=== PATIENT | female | born 1945 | race Caucasian/White ===

== ENCOUNTER 2020-08-27 09:07 | Inpatient (IN) ==
[2020-08-27] MEDS ORDERED: DEXTROSE 50% 25 GM/50 ML VIAL IV PRN (09:26)
[2020-08-27] MEDS ORDERED: GLUCAGON 1 MG VIAL IM PRN (09:26)
[2020-08-27] MEDS ORDERED: ALBUTEROL 2.5 MG/3 ML NEB RESP TX PRN (09:33)
[2020-08-27 14:50] LABS: Basophils # 0.1 10*3/uL (0.0-0.2); Basophils % 0.6 % (0.0-0.8); Eosinophils # 0.1 10*3/uL (0.0-0.87); Eosinophils % 1.2 % (0.00-10.9); Hematocrit 32.1 VOL% (35.7-47.0); Hemoglobin 9.6 GM/DL (12.0-16.0); Immature Granulocytes % 9.9 %; Immature Granulocytes Absolute 0.92 #; Lymphocytes # 1.5 10*3/uL (1.4-4.0); Lymphocytes % 16.3 % (21.3-54.2); Mean Corpuscular HGB Conc 29.9 GM/DL (32-36); Mean Corpuscular Volume 88.7 FL (87-102); Mean Platelet Volume 9.5 FL (9.6-12.0); Monocytes % 8.6 % (1.7-12.7); NRBC # 0.06 10*3/uL; Neutrophils % 63.4 % (38.7-73.9); Platelet Count 316 T/CUMM (130-400); Red Blood Count 3.62 MC/CUMM (3.8-5.5); Red Cell Distribution Width 18.6 % (9.3-17.3); White Blood Count 9.3 T/CUMM (4-12)
[2020-08-27] MEDS: INSULIN REGULAR 100 UNIT/ML SUBCUT SCH ×3 (14:54→20:15)
[2020-08-27] MEDS: SODIUM CHLORIDE 0.9% 1,000 ML IV SCH (14:54)
[2020-08-27 15:06] LABS: Albumin 2.5 G/DL (3.4-5.0); Bilirubin,Total 0.4 MG/DL (0.20-1.00); Calcium 9.8 MG/DL (8.5-10.1); Osmolality,Calculated 295.3 MOS/KG (273-304)
[2020-08-27 15:17] LABS: Band Neutrophils 6 % (0-10); Eosinophils 2 % (0-10); Hypochromasia 1+; Lymphocytes 13 % (20-55); Metamyelocytes 1 %; Myelocytes 5 %; Polychromasia 1+; Segmented Neutrophils 66 % (50-85); Total Cells Counted 100
[2020-08-27 15:18] LABS: Anisocytosis 2+; Atypical Lymphocytes Few; Macrocytosis 1+; Microcytosis 2+; Platelet Estimate Normal
[2020-08-27 15:55] LABS: ABG Base Excess 1.8 MMOL/L (-2.5-2.5); ABG Oxygen Saturation 96.3 % (95-100); ABG PCO2 41.9 MM HG (35-48); ABG PH 7.411 (7.35-7.45); ABG PO2 85.4 MM HG (80-95); ABG TCO2 24.4 MMOL/L (23-27); Allen Test Positive
[2020-08-27] MEDS: PREGABALIN 100 MG CAPSULE PO SCH ×2 (16:44→20:16)
[2020-08-27] MEDS: AMITRIPTYLINE 50 MG TABLET PO SCH (20:15)
[2020-08-27] MEDS: CHLORHEXIDINE 0.12% ORAL RINSE 60 ML BOTTLE SWISH/SPIT SCH (20:16)
[2020-08-27] MEDS: ATORVASTATIN 40 MG TABLET PO SCH (20:16)
[2020-08-27] MEDS: MELATONIN 3 MG TABLET PO SCH (21:48)
[2020-08-28 04:56] LABS: Basophils # 0.1 10*3/uL (0.0-0.2); Basophils % 0.5 % (0.0-0.8); Eosinophils # 0.2 10*3/uL (0.0-0.87); Eosinophils % 2.3 % (0.00-10.9); Hematocrit 30.5 VOL% (35.7-47.0); Hemoglobin 9.3 GM/DL (12.0-16.0); Immature Granulocytes % 12.8 %; Immature Granulocytes Absolute 1.27 #; Lymphocytes % 20.2 % (21.3-54.2); Mean Corpuscular HGB Conc 30.5 GM/DL (32-36); Mean Corpuscular Volume 88.2 FL (87-102); Mean Platelet Volume 9.4 FL (9.6-12.0); Monocytes % 8.4 % (1.7-12.7); NRBC # 0.07 10*3/uL; Neutrophils % 55.8 % (38.7-73.9); Platelet Count 298 T/CUMM (130-400); Red Blood Count 3.46 MC/CUMM (3.8-5.5); Red Cell Distribution Width 18.6 % (9.3-17.3)
[2020-08-28 05:26] LABS: Albumin 2.3 G/DL (3.4-5.0); Bilirubin,Total 0.5 MG/DL (0.20-1.00); Calcium 9.2 MG/DL (8.5-10.1); Osmolality,Calculated 288.1 MOS/KG (273-304); Potassium 3.7 MMOL/L (3.5-5.1); Total Protein 6.3 G/DL (6.4-8.2)
[2020-08-28 05:50] LABS: Eosinophils 2 % (0-10); Lymphocytes 27 % (20-55); Nucleated Red Blood Cells 1 (0-5); Platelet Estimate Normal; Segmented Neutrophils 62 % (50-85)
[2020-08-28 05:51] LABS: Total Cells Counted 100
[2020-08-28] MEDS: INSULIN REGULAR 100 UNIT/ML SUBCUT SCH ×4 (07:21→21:50)
[2020-08-28] MEDS: POLYETHYLENE GLYCOL POWDER 17 GM PACK PO SCH (08:25)
[2020-08-28] MEDS: CHLORHEXIDINE 0.12% ORAL RINSE 60 ML BOTTLE SWISH/SPIT SCH ×2 (08:37→21:50)
[2020-08-28] MEDS: FOLIC ACID 1 MG TABLET PO SCH (08:37)
[2020-08-28] MEDS: PREGABALIN 100 MG CAPSULE PO SCH ×3 (08:37→22:58)
[2020-08-28] MEDS: PANTOPRAZOLE 40 MG TABLET PO SCH (08:37)
[2020-08-28] MEDS: SODIUM CHLORIDE 0.9% 1,000 ML IV SCH (12:55)
[2020-08-28] MEDS: CHLORHEXIDINE 4% SOLN 118 ML BOTTLE TOP SCH ×2 (15:58→21:50)
[2020-08-28] MEDS: MELATONIN 3 MG TABLET PO SCH (22:58)
[2020-08-28] MEDS: AMITRIPTYLINE 50 MG TABLET PO SCH (22:58)
[2020-08-28] MEDS: ATORVASTATIN 40 MG TABLET PO SCH (22:58)
[2020-08-29] MEDS ORDERED: VANCOMYCIN 1,000 MG VIAL ONE (04:19)
[2020-08-29] MEDS ORDERED: VANCOMYCIN 500 MG VIAL ONE ×2 (04:20→10:10)
[2020-08-29] MEDS ORDERED: PAPAVERINE 60 MG/2 ML VIAL ONE ×2 (04:20→10:07)
[2020-08-29] MEDS ORDERED: VECURONIUM 10 MG VIAL IV ONE ×3 (06:17→08:50)
[2020-08-29] MEDS ORDERED: LIDOCAINE 2% 5 ML VIAL ONE ×2 (06:17→11:31)
[2020-08-29] MEDS ORDERED: LACTATED RINGERS 1,000 ML IV ONE (06:17)
[2020-08-29] MEDS ORDERED: SODIUM CHLORIDE 0.9% 250 ML IV ONE (06:17)
[2020-08-29] MEDS ORDERED: SODIUM CHLORIDE 0.9% 1,000 ML IV ONE (06:17)
[2020-08-29] MEDS ORDERED: ETOMIDATE 40 MG/20 ML VIAL IV ONE (06:17)
[2020-08-29] MEDS ORDERED: HEPARIN/NACL 0.9% 2 UNITS/ML 1,000 UNIT/500 ML BAG IV ONE (06:17)
[2020-08-29] MEDS ORDERED: SODIUM CHLORIDE 0.9% 100 ML IV ONE (06:17)
[2020-08-29] MEDS ORDERED: AMINOCAPROIC ACID 5,000 MG/20 ML VIAL ONE (06:17)
[2020-08-29] MEDS ORDERED: MINERAL OIL/PETROLATUM OPH OINT 3.5 GM TUBE ONE (06:17)
[2020-08-29] MEDS ORDERED: CALCIUM CHLORIDE 1,000 MG/10 ML VIAL IV ONE (06:19)
[2020-08-29] MEDS ORDERED: MIDAZOLAM 10 MG/2 ML VIAL ONE ×4 (06:21→08:51)
[2020-08-29] MEDS ORDERED: SUFentanil 250 MCG/5 ML AMP ONE ×2 (06:22→08:03)
[2020-08-29] MEDS ORDERED: DIAZEPAM 5 MG TABLET PO ONE (06:30)
[2020-08-29] MEDS ORDERED: CEFUROXIME INJ 1,500 MG in SODIUM CHLORIDE 0.9% 100 ML IV ONE (06:30)
[2020-08-29] MEDS ORDERED: POTASSIUM CHLORIDE RIDER 20 MEQ/100 ML PREMIX IV ONE (07:24)
[2020-08-29] MEDS ORDERED: SODIUM BICARBONATE 50 MEQ/50 ML VIAL IV ONE ×2 (07:24→11:33)
[2020-08-29] MEDS ORDERED: NITROPRUSSIDE 50 MG/2 ML VIAL ONE (07:24)
[2020-08-29] MEDS ORDERED: CALCIUM CHLORIDE 1,000 MG/10 ML SYRINGE IV ONE (07:25)
[2020-08-29] MEDS ORDERED: PHENYLEPHRINE DRIP 40 MG/250 ML PREMIX IV ONE (07:25)
[2020-08-29 07:35] LABS: ABG HCO3 24.4 MMOL/L (20-26); ABG Oxygen Saturation 99.4 % (95-100); ABG PCO2 29.9 MM HG (35-48); ABG PH 7.529 (7.35-7.45); ABG PO2 404.8 MM HG (80-95); ABG TCO2 25.3 MMOL/L (23-27); Ionized Calcium Arterial 1.22 MMOL/L (1.21-1.46); Potassium Heart/CVR 4.5 MMOL/L (3.5-5.1)
[2020-08-29 07:36] LABS: Glucose Heart Surgery 224 MG/DL (74-106); Hemoglobin Heart Surgery 9.5 G/DL (12.0-16.0); PCO2 Patient Temp Arterial 29.9 MMHG; PH Patient Temp Arterial 7.529; PO2 Patient Temp Arterial 404.8 MM HG; Patient Temperature 37 CELCIUS; Sodium Heart/CVR 137 MMOL/L (135-145)
[2020-08-29 07:44] LABS: Bilirubin,Urine Negative (Negative); Blood, Urine Negative (Negative); Glucose,Urine (UA) >=500 mg/dL (Negative); Ketones,Urine Negative (Negative); Nitrite,Urine Negative (Negative); Protein,Urine Negative; RBC,Urine 3 /HPF (0-4); Urine Appearance CLEAR (Clear); Urine Color Yellow (Yellow); Urine Urobilinogen < 2.0 EU/DL (0.2-1.0)
[2020-08-29] MEDS ORDERED: diphenhydrAMINE 50 MG/1 ML VIAL ONE (08:50)
[2020-08-29] MEDS ORDERED: SEVOFLURANE 1 UNIT/15 MINUTE INH ONE (08:51)
[2020-08-29 08:59] LABS: Hematocrit Heart Surgery 30.1 PERCENT (37-47); Hemoglobin Heart Surgery 9.7 G/DL (12.0-16.0); PCO2 Patient Temp Venous 42.4 MM HG; PH Patient Temp Venous 7.386; PO2 Patient Temp Venous 41.7 MM HG; VBG Base Excess 0.4 MEQ/L (0-4); VBG HCO3 24.5 MEQ/L (24-28); VBG PCO2 46.7 MMHG (41-51); VBG PH 7.357; VBG PO2 47.8 MMHG (17-40); VBG Total CO2 24.1 MMOL/L
[2020-08-29 09:36] LABS: PCO2 Patient Temp Venous 30.8 MM HG; PH Patient Temp Venous 7.502; PO2 Patient Temp Venous 28.4 MM HG; Potassium Heart/CVR 4.3 MMOL/L (3.5-5.1); VBG Base Excess 1.5 MEQ/L (0-4); VBG HCO3 25.3 MEQ/L (24-28); VBG Oxygen Saturation 68.7 %; VBG PCO2 35.6 MMHG (41-51); VBG PH 7.457; VBG PO2 35.1 MMHG (17-40); VBG Total CO2 23.2 MMOL/L
[2020-08-29] MEDS ORDERED: FAMOTIDINE 20 MG/2 ML VIAL IV ONE (09:38)
[2020-08-29 10:10] LABS: Hematocrit Heart Surgery 28.6 PERCENT (37-47); Hemoglobin Heart Surgery 9.2 G/DL (12.0-16.0); PCO2 Patient Temp Venous 38.5 MM HG; PH Patient Temp Venous 7.427; PO2 Patient Temp Venous 39.1 MM HG; Potassium Heart/CVR 4.6 MMOL/L (3.5-5.1); VBG Base Excess 1.1 MEQ/L (0-4); VBG Oxygen Saturation 72.2 %; VBG PCO2 38.5 MMHG (41-51); VBG PH 7.427; VBG PO2 39.1 MMHG (17-40); VBG Total CO2 23.4 MMOL/L
[2020-08-29 10:36] LABS: Hematocrit Heart Surgery 29.6 PERCENT (37-47); Hemoglobin Heart Surgery 9.5 G/DL (12.0-16.0); PCO2 Patient Temp Venous 38.4 MM HG; PH Patient Temp Venous 7.433; PO2 Patient Temp Venous 38.7 MM HG; Potassium Heart/CVR 4.2 MMOL/L (3.5-5.1); VBG Base Excess 1.4 MEQ/L (0-4); VBG HCO3 25.3 MEQ/L (24-28); VBG Oxygen Saturation 71.9 %; VBG PCO2 38.4 MMHG (41-51); VBG PH 7.433; VBG PO2 38.7 MMHG (17-40); VBG Total CO2 23.5 MMOL/L
[2020-08-29 11:06] LABS: Hematocrit Heart Surgery 27.9 PERCENT (37-47); PCO2 Patient Temp Venous 33.5 MM HG; PH Patient Temp Venous 7.48; PO2 Patient Temp Venous 38.9 MM HG; Potassium Heart/CVR 4.2 MMOL/L (3.5-5.1); VBG Base Excess 1.8 MEQ/L (0-4); VBG HCO3 25.7 MEQ/L (24-28); VBG Oxygen Saturation 80.6 %; VBG PH 7.45; VBG PO2 44.7 MMHG (17-40); VBG Total CO2 23.7 MMOL/L
[2020-08-29] MEDS ORDERED: NEOMYCIN/POLYMYXIN IRRIG SOLN 1 ML AMP BLADDERIRR ONE (11:13)
[2020-08-29] MEDS ORDERED: AMIODARONE 150 MG/3 ML VIAL ONE (11:22)
[2020-08-29] MEDS ORDERED: EPINEPHrine 1 MG/ML VIAL ONE (11:30)
[2020-08-29] MEDS ORDERED: ALBUMIN 25% 25 GM/100 ML VIAL IV ONE (11:31)
[2020-08-29] MEDS ORDERED: MANNITOL 100 GM/500 ML BAG IV ONE (11:32)
[2020-08-29] MEDS ORDERED: PROTAMINE SULFATE 250 MG/25 ML VIAL IV ONE (11:32)
[2020-08-29] MEDS ORDERED: DEXTROSE 5% KCL 20 MEQ 40 MEQ/2,000 ML BAG IV ONE (11:32)
[2020-08-29] MEDS ORDERED: ALBUMIN 5% 12.5 GM/250 ML VIAL IV ONE (11:32)
[2020-08-29] MEDS ORDERED: MAGNESIUM SULFATE 5 GM/10 ML VIAL IV ONE (11:32)
[2020-08-29] MEDS ORDERED: methylPREDNISolone SOD SUC 1,000 MG/8 ML VIAL ONE (11:32)
[2020-08-29] MEDS ORDERED: POTASSIUM CHLORIDE 20 MEQ/10 ML VIAL ONE (11:33)
[2020-08-29] MEDS ORDERED: HEPARIN 10,000 UNIT/10 ML VIAL ONE (11:33)
[2020-08-29] MEDS ORDERED: FUROSEMIDE 20 MG/2 ML VIAL ONE (11:33)
[2020-08-29] MEDS ORDERED: PROTAMINE SULFATE 50 MG/5 ML VIAL IV ONE (11:33)
[2020-08-29 11:40] LABS: ABG Base Excess 0.6 MMOL/L (-2.5-2.5); ABG PCO2 35.3 MM HG (35-48); ABG PH 7.447 (7.35-7.45); ABG TCO2 22.3 MMOL/L (23-27); Glucose Heart Surgery 420 MG/DL (74-106); Hematocrit Heart Surgery 28.5 PERCENT (37-47); Hemoglobin Heart Surgery 9.2 G/DL (12.0-16.0); Ionized Calcium Arterial 1.39 MMOL/L (1.21-1.46); PCO2 Patient Temp Arterial 35.3 MMHG; PH Patient Temp Arterial 7.447; Patient Temperature 37 CELCIUS; Potassium Heart/CVR 4.1 MMOL/L (3.5-5.1); Sodium Heart/CVR 136 MMOL/L (135-145)
[2020-08-29] MEDS ORDERED: MIDAZOLAM 10 MG/2 ML VIAL IV PRN (12:18)
[2020-08-29] MEDS ORDERED: MORPHINE 10 MG/1 ML VIAL IV PRN (12:18)
[2020-08-29] MEDS ORDERED: MAGNESIUM SULF RIDER 4 GM/100 ML PREMIX IV PRN (12:18)
[2020-08-29] MEDS ORDERED: NITROPRUSSIDE 100 MG in DEXTROSE 5% 250 ML IV PRN (12:18)
[2020-08-29] MEDS ORDERED: POTASSIUM CHLORIDE RIDER 10 MEQ/100 ML PREMIX IV PRN (12:18)
[2020-08-29] MEDS ORDERED: MIDAZOLAM 2 MG/2 ML VIAL IV PRN (12:18)
[2020-08-29] MEDS ORDERED: MAGNESIUM SULF RIDER 2 GM/50 ML PREMIX IV PRN (12:18)
[2020-08-29] MEDS ORDERED: ACETAMINOPHEN 650 MG SUPP RECTAL PRN (12:18)
[2020-08-29] MEDS ORDERED: ONDANSETRON 4 MG/2 ML VIAL IV PRN (12:18)
[2020-08-29] MEDS ORDERED: SODIUM CHLORIDE 0.45% 1,000 ML IV SCH ×2 (12:18)
[2020-08-29] MEDS ORDERED: CHLORHEXIDINE 4% SOLN 118 ML BOTTLE TOP PRN (12:18)
[2020-08-29] MEDS ORDERED: DEXTROSE 50% 25 GM/50 ML VIAL IV PRN ×2 (12:18)
[2020-08-29] MEDS ORDERED: INSULIN REGULAR 100 UNIT/ML IV PRN (12:18)
[2020-08-29] MEDS ORDERED: INSULIN REGULAR 100 UNIT/ML IV ONE (12:18)
[2020-08-29] MEDS ORDERED: CALCIUM CHLORIDE 1,000 MG/10 ML SYRINGE IV PRN (12:18)
[2020-08-29] MEDS ORDERED: VECURONIUM 10 MG VIAL IV PRN ×2 (12:18)
[2020-08-29] MEDS ORDERED: PHENYLEPHRINE DRIP 40 MG/250 ML PREMIX IV PRN (12:18)
[2020-08-29] MEDS ORDERED: THROMBIN TOPICAL (RECOMBINANT) 5,000 UNIT VIAL TOP ONE (12:30)
[2020-08-29 12:42] LABS: ABG Base Excess 1.6 MMOL/L (-2.5-2.5); ABG HCO3 25.9 MMOL/L (20-26); ABG PCO2 36.7 MM HG (35-48); ABG TCO2 23.2 MMOL/L (23-27); Glucose Heart Surgery 378 MG/DL (74-106); Hematocrit Heart Surgery 29.5 PERCENT (37-47); Hemoglobin Heart Surgery 9.5 G/DL (12.0-16.0); Potassium Heart/CVR 4.2 MMOL/L (3.5-5.1)
[2020-08-29 12:45] LABS: Basophils # 0.1 10*3/uL (0.0-0.2); Basophils % 0.4 % (0.0-0.8); Eosinophils # 0.1 10*3/uL (0.0-0.87); Eosinophils % 0.4 % (0.00-10.9); Hematocrit 29.5 VOL% (35.7-47.0); Hemoglobin 9.5 GM/DL (12.0-16.0); Immature Granulocytes % 9.6 %; Immature Granulocytes Absolute 2.32 #; Lymphocytes # 1.2 10*3/uL (1.4-4.0); Mean Corpuscular HGB Conc 32.2 GM/DL (32-36); Mean Corpuscular Volume 86.8 FL (87-102); Mean Platelet Volume 9.8 FL (9.6-12.0); Monocytes % 5.1 % (1.7-12.7); NRBC # 0.04 10*3/uL; Neutrophils % 79.5 % (38.7-73.9); Platelet Count 275 T/CUMM (130-400); Red Cell Distribution Width 17.3 % (9.3-17.3)
[2020-08-29 12:49] LABS: White Blood Count 24.2 T/CUMM (4-12)
[2020-08-29 13:03] LABS: High Sensitive Troponin I* 7120.8 ng/L (0-54)
[2020-08-29 13:10] LABS: INR 1.1; PT Patient Result 12.1 SECS (10.5-12.0); Partial Thromboplastin Time 26.1 SECS (23.9-33.8)
[2020-08-29] MEDS: INSULIN REGULAR DRIP 100 ML IV SCH (13:10)
[2020-08-29] MEDS: INSULIN REGULAR 100 UNIT/ML SUBCUT SCH (13:11)
[2020-08-29] MEDS: CHLORHEXIDINE 0.12% ORAL RINSE 60 ML BOTTLE SWISH/SPIT SCH ×2 (13:12→20:07)
[2020-08-29] MEDS: PREGABALIN 100 MG CAPSULE PO SCH (13:12)
[2020-08-29] MEDS: POLYETHYLENE GLYCOL POWDER 17 GM PACK PO SCH (13:12)
[2020-08-29] MEDS: PANTOPRAZOLE 40 MG TABLET PO SCH (13:12)
[2020-08-29] MEDS: CHLORHEXIDINE 4% SOLN 118 ML BOTTLE TOP SCH (13:12)
[2020-08-29] MEDS: SODIUM CHLORIDE 0.9% 1,000 ML IV SCH (13:12)
[2020-08-29] MEDS: FOLIC ACID 1 MG TABLET PO SCH (13:12)
[2020-08-29 13:14] LABS: Albumin 2.7 G/DL (3.4-5.0); Bilirubin,Total 0.9 MG/DL (0.20-1.00); Calcium 8.9 MG/DL (8.5-10.1); Osmolality,Calculated 295.5 MOS/KG (273-304); Potassium 4.3 MMOL/L (3.5-5.1); Total Protein 5.5 G/DL (6.4-8.2)
[2020-08-29] MEDS ORDERED: NITROGLYCERIN DRIP 50 MG/250 ML BOTTLE IV ONE (13:20)
[2020-08-29] MEDS ORDERED: NITROGLYCERIN DRIP 50 MG/250 ML BOTTLE IV PRN (13:21)
[2020-08-29 13:30] LABS: Band Neutrophils 12 % (0-10); Lymphocytes 4 % (20-55); Metamyelocytes 3 %; Myelocytes 3 %; Segmented Neutrophils 73 % (50-85); Total Cells Counted 100
[2020-08-29 13:32] LABS: Anisocytosis Slight; Atypical Lymphocytes Few; Microcytosis Slight; Platelet Estimate Normal; Toxic Granulation 1+
[2020-08-29 14:46] LABS: ABG HCO3 27.1 MMOL/L (20-26); ABG Oxygen Saturation 99.6 % (95-100); ABG PCO2 34.6 MM HG (35-48); ABG PH 7.488 (7.35-7.45); ABG TCO2 23.9 MMOL/L (23-27); Glucose Heart Surgery 310 MG/DL (74-106); Hemoglobin Heart Surgery 9.7 G/DL (12.0-16.0); Potassium Heart/CVR 3.9 MMOL/L (3.5-5.1)
[2020-08-29 16:56] LABS: ABG Base Excess 3.2 MMOL/L (-2.5-2.5); ABG HCO3 27.3 MMOL/L (20-26); ABG Oxygen Saturation 99.7 % (95-100); ABG PH 7.506 (7.35-7.45); ABG TCO2 23.7 MMOL/L (23-27); Glucose Heart Surgery 255 MG/DL (74-106); Hemoglobin Heart Surgery 9.7 G/DL (12.0-16.0)
[2020-08-29 16:59] LABS: Hematocrit Heart Surgery 30.3 PERCENT (37-47); Hemoglobin Heart Surgery 9.8 G/DL (12.0-16.0); PH Patient Temp Venous 7.503; Potassium Heart/CVR 4.1 MMOL/L (3.5-5.1); VBG Base Excess 3.7 MEQ/L (0-4); VBG HCO3 27.5 MEQ/L (24-28); VBG Oxygen Saturation 86.6 %; VBG PH 7.503; VBG Total CO2 24.3 MMOL/L
[2020-08-29] MEDS ORDERED: FUROSEMIDE 40 MG/4 ML VIAL IV ONE (18:19)
[2020-08-29] MEDS ORDERED: FUROSEMIDE 40 MG/4 ML VIAL IV PRN (18:19)
[2020-08-29 19:25] LABS: ABG Base Excess 2.5 MMOL/L (-2.5-2.5); ABG HCO3 26.3 MMOL/L (20-26); ABG Oxygen Saturation 98.2 % (95-100); ABG PCO2 37.8 MM HG (35-48); ABG PH 7.461 (7.35-7.45); ABG PO2 129.7 MM HG (80-95); ABG TCO2 27.5 MMOL/L (23-27); Glucose Heart Surgery 193 MG/DL (74-106); Hemoglobin Heart Surgery 10.2 G/DL (12.0-16.0); Potassium Heart/CVR 3.3 MMOL/L (3.5-5.1)
[2020-08-29] MEDS: CEFUROXIME INJ 1,500 MG in SODIUM CHLORIDE 0.9% 100 ML IV SCH (19:26)
[2020-08-29] MEDS: ALBUMIN 5% 12.5 GM/250 ML VIAL IV PRN ×2 (19:35→22:11)
[2020-08-29] MEDS: LACTATED RINGERS 250 ML IV PRN ×4 (20:07→21:51)
[2020-08-29] MEDS: POTASSIUM CHLORIDE RIDER 20 MEQ/100 ML PREMIX IV PRN ×2 (20:12→20:37)
[2020-08-29 20:34] LABS: CKMB % 3.2 %
[2020-08-29 20:36] LABS: High Sensitive Troponin I* 4942.8 ng/L (0-54)
[2020-08-30 00:06] LABS: ABG Base Excess 3.1 MMOL/L (-2.5-2.5); ABG HCO3 27.2 MMOL/L (20-26); ABG Oxygen Saturation 98.6 % (95-100); ABG PH 7.468 (7.35-7.45); ABG TCO2 24.8 MMOL/L (23-27); Glucose Heart Surgery 120 MG/DL (74-106); Hematocrit Heart Surgery 26.6 PERCENT (37-47); Hemoglobin Heart Surgery 8.6 G/DL (12.0-16.0); Potassium Heart/CVR 3.8 MMOL/L (3.5-5.1)
[2020-08-30] MEDS: POTASSIUM CHLORIDE RIDER 20 MEQ/100 ML PREMIX IV PRN ×2 (00:33→03:09)
[2020-08-30] MEDS: INSULIN REGULAR DRIP 100 ML IV SCH (01:14)
[2020-08-30 02:45] LABS: ABG HCO3 27.1 MMOL/L (20-26); ABG Oxygen Saturation 97.2 % (95-100); ABG PCO2 44.5 MM HG (35-48); ABG PH 7.402 (7.35-7.45); ABG PO2 105.8 MM HG (80-95); ABG TCO2 28.4 MMOL/L (23-27); Glucose Heart Surgery 108 MG/DL (74-106); Potassium Heart/CVR 4.3 MMOL/L (3.5-5.1)
[2020-08-30] MEDS ORDERED: NITROPRUSSIDE 50 MG/2 ML VIAL ONE (03:14)
[2020-08-30 04:12] LABS: ABG Base Excess 1.3 MMOL/L (-2.5-2.5); ABG HCO3 25.6 MMOL/L (20-26); ABG PCO2 44.5 MM HG (35-48); ABG PH 7.384 (7.35-7.45); ABG PO2 87.1 MM HG (80-95); ABG TCO2 24.7 MMOL/L (23-27); Glucose Heart Surgery 130 MG/DL (74-106); Hematocrit Heart Surgery 26.6 PERCENT (37-47); Hemoglobin Heart Surgery 8.6 G/DL (12.0-16.0); Potassium Heart/CVR 4.6 MMOL/L (3.5-5.1)
[2020-08-30 04:26] LABS: Basophils % 0.2 % (0.0-0.8); Hematocrit 26.4 VOL% (35.7-47.0); Hemoglobin 8.3 GM/DL (12.0-16.0); Immature Granulocytes % 7.4 %; Immature Granulocytes Absolute 1.31 #; Lymphocytes # 1.5 10*3/uL (1.4-4.0); Lymphocytes % 8.2 % (21.3-54.2); Mean Corpuscular HGB Conc 31.4 GM/DL (32-36); Mean Corpuscular Volume 87.1 FL (87-102); Mean Platelet Volume 10.6 FL (9.6-12.0); Monocytes % 4.4 % (1.7-12.7); NRBC # 0.03 10*3/uL; Neutrophils % 79.8 % (38.7-73.9); Platelet Count 251 T/CUMM (130-400); Red Blood Count 3.03 MC/CUMM (3.8-5.5); Red Cell Distribution Width 17.5 % (9.3-17.3); White Blood Count 17.8 T/CUMM (4-12)
[2020-08-30 04:43] LABS: Albumin 3.1 G/DL (3.4-5.0); Bilirubin,Direct 0.18 MG/DL (0.0-0.20); Bilirubin,Total 0.5 MG/DL (0.20-1.00); Calcium 8.7 MG/DL (8.5-10.1); Potassium 4.6 MMOL/L (3.5-5.1); Total Protein 6.1 G/DL (6.4-8.2)
[2020-08-30 04:47] LABS: Lymphocytes 6 % (20-55); Platelet Estimate Adequate; Segmented Neutrophils 90 % (50-85); Total Cells Counted 100
[2020-08-30 04:48] LABS: Hypochromasia 1+; Microcytosis 1+
[2020-08-30 05:29] LABS: CKMB % 3.7 %
[2020-08-30 05:31] LABS: High Sensitive Troponin I* 3903.9 ng/L (0-54)
[2020-08-30 07:23] LABS: ABG Base Excess 1.1 MMOL/L (-2.5-2.5); ABG HCO3 25.4 MMOL/L (20-26); ABG Oxygen Saturation 97.8 % (95-100); ABG PCO2 45.1 MM HG (35-48); ABG PH 7.378 (7.35-7.45); ABG TCO2 24.4 MMOL/L (23-27); Glucose Heart Surgery 126 MG/DL (74-106); Hematocrit Heart Surgery 29.6 PERCENT (37-47); Hemoglobin Heart Surgery 9.5 G/DL (12.0-16.0); Potassium Heart/CVR 4.4 MMOL/L (3.5-5.1)
[2020-08-30] MEDS: CEFUROXIME INJ 1,500 MG in SODIUM CHLORIDE 0.9% 100 ML IV SCH ×2 (07:57→20:08)
[2020-08-30] MEDS: CHLORHEXIDINE 0.12% ORAL RINSE 60 ML BOTTLE SWISH/SPIT SCH ×2 (08:00→20:16)
[2020-08-30] MEDS: FOLIC ACID 1 MG TABLET PO SCH (08:00)
[2020-08-30] MEDS: ASPIRIN EC 325 MG TABLET PO SCH (08:00)
[2020-08-30] MEDS ORDERED: FUROSEMIDE 40 MG/4 ML VIAL IV ONE (09:31)
[2020-08-30] MEDS ORDERED: ONDANSETRON 4 MG/2 ML VIAL IV PRN (10:10)
[2020-08-30] MEDS ORDERED: MAGNESIUM SULF RIDER 4 GM/100 ML PREMIX IV PRN (10:10)
[2020-08-30] MEDS ORDERED: DEXTROSE 50% 25 GM/50 ML VIAL IV PRN (10:10)
[2020-08-30] MEDS ORDERED: MAGNESIUM SULF RIDER 2 GM/50 ML PREMIX IV PRN (10:10)
[2020-08-30] MEDS ORDERED: GLUCAGON 1 MG VIAL IM PRN ×2 (10:10)
[2020-08-30] MEDS ORDERED: POTASSIUM CHLORIDE 20 MEQ TABLET PO PRN (10:10)
[2020-08-30] MEDS ORDERED: MAGNESIUM HYDROXIDE SUSP 30 ML UDCUP PO PRN (10:10)
[2020-08-30] MEDS ORDERED: SODIUM CHLOR 0.45% KCL 20 MEQ 20 MEQ/1,000 ML BAG IV SCH (10:10)
[2020-08-30] MEDS ORDERED: ALUMINUM/MAGNES/SIMETH MAX STR 30 ML UDCUP PO PRN (10:10)
[2020-08-30] MEDS ORDERED: ACETAMINOPHEN 325 MG TABLET PO PRN (10:10)
[2020-08-30] MEDS: METOPROLOL TARTRATE 25 MG TABLET PO SCH ×2 (10:41→20:07)
[2020-08-30] MEDS: INSULIN REGULAR 100 UNIT/ML SUBCUT SCH ×5 (12:16→23:44)
[2020-08-30 13:19] LABS: CKMB % 3.9 %
[2020-08-30 13:22] LABS: High Sensitive Troponin I* 4311.1 ng/L (0-54)
[2020-08-30] MEDS ORDERED: INSULIN REGULAR 100 UNIT/ML SUBCUT SCH (16:00)
[2020-08-30] MEDS ORDERED: INSULIN GLARGINE 100 UNIT/ML SUBCUT ONE (16:11)
[2020-08-30] MEDS: ZALEPLON 5 MG CAPSULE PO PRN (20:07)
[2020-08-30] MEDS: SIMVASTATIN 80 MG TABLET PO SCH (20:07)
[2020-08-30] MEDS: AMITRIPTYLINE 50 MG TABLET PO SCH (20:07)
[2020-08-30] MEDS: oxyCODONE/ACETAMINOPHEN 5-325 MG TABLET PO PRN ×2 (20:08→23:45)
[2020-08-31 04:39] LABS: Basophils % 0.2 % (0.0-0.8); Hematocrit 30.8 VOL% (35.7-47.0); Hemoglobin 9.6 GM/DL (12.0-16.0); Immature Granulocytes % 4.5 %; Immature Granulocytes Absolute 0.78 #; Lymphocytes # 1.8 10*3/uL (1.4-4.0); Lymphocytes % 10.3 % (21.3-54.2); Mean Corpuscular HGB Conc 31.2 GM/DL (32-36); Mean Corpuscular Volume 89.3 FL (87-102); Mean Platelet Volume 10.4 FL (9.6-12.0); Monocytes % 8.3 % (1.7-12.7); NRBC # 0.05 10*3/uL; Neutrophils % 76.7 % (38.7-73.9); Platelet Count 284 T/CUMM (130-400); Red Blood Count 3.45 MC/CUMM (3.8-5.5); Red Cell Distribution Width 17.5 % (9.3-17.3); White Blood Count 17.2 T/CUMM (4-12)
[2020-08-31 04:58] LABS: Band Neutrophils 3 % (0-10); Lymphocytes 5 % (20-55); Segmented Neutrophils 80 % (50-85); Total Cells Counted 100
[2020-08-31 04:59] LABS: Hypochromasia 1+; Microcytosis 1+; Platelet Estimate Normal
[2020-08-31 05:00] LABS: Albumin 2.9 G/DL (3.4-5.0); Bilirubin,Direct 0.13 MG/DL (0.0-0.20); Bilirubin,Total 0.4 MG/DL (0.20-1.00); Calcium 8.7 MG/DL (8.5-10.1); Osmolality,Calculated 292.1 MOS/KG (273-304); Potassium 4.2 MMOL/L (3.5-5.1); Total Protein 6.5 G/DL (6.4-8.2)
[2020-08-31 05:01] LABS: Albumin 2.9 G/DL (3.4-5.0); Bilirubin,Direct 0.19 MG/DL (0.0-0.20); Bilirubin,Indirect 0.2 MG/DL (0.0-1.0); Bilirubin,Total 0.4 MG/DL (0.20-1.00); CKMB % 2.3 %
[2020-08-31 05:03] LABS: High Sensitive Troponin I* 3117.5 ng/L (0-54)
[2020-08-31] MEDS: INSULIN REGULAR 100 UNIT/ML SUBCUT SCH ×5 (05:04→21:13)
[2020-08-31] MEDS ORDERED: FUROSEMIDE 40 MG/4 ML VIAL IV ONE (06:00)
[2020-08-31] MEDS: FOLIC ACID 1 MG TABLET PO SCH (08:56)
[2020-08-31] MEDS: hydroCHLOROthiazide 25 MG TABLET PO SCH (08:56)
[2020-08-31] MEDS: DOCUSATE SODIUM 100 MG CAPSULE PO SCH (08:56)
[2020-08-31] MEDS: PANTOPRAZOLE 40 MG TABLET PO SCH (08:56)
[2020-08-31] MEDS: ASPIRIN EC 325 MG TABLET PO SCH (08:57)
[2020-08-31] MEDS: METOPROLOL TARTRATE 25 MG TABLET PO SCH ×2 (08:57→21:12)
[2020-08-31] MEDS: FERROUS SULFATE 325 MG TABLET PO SCH (08:57)
[2020-08-31] MEDS: CHLORHEXIDINE 0.12% ORAL RINSE 60 ML BOTTLE SWISH/SPIT SCH ×2 (08:57→21:13)
[2020-08-31] MEDS: oxyCODONE/ACETAMINOPHEN 5-325 MG TABLET PO PRN (21:12)
[2020-08-31] MEDS: SIMVASTATIN 80 MG TABLET PO SCH (21:12)
[2020-08-31] MEDS: AMITRIPTYLINE 50 MG TABLET PO SCH (21:12)
[2020-08-31] MEDS: ZALEPLON 5 MG CAPSULE PO PRN (21:34)
[2020-09-01] MEDS: DEXTROSE 50% 25 GM/50 ML VIAL IV PRN ×2 (00:30→01:00)
[2020-09-01] MEDS: oxyCODONE/ACETAMINOPHEN 5-325 MG TABLET PO PRN ×3 (01:00→22:13)
[2020-09-01 05:14] LABS: Basophils # 0.1 10*3/uL (0.0-0.2); Basophils % 0.4 % (0.0-0.8); Eosinophils # 0.1 10*3/uL (0.0-0.87); Eosinophils % 0.5 % (0.00-10.9); Hematocrit 31.4 VOL% (35.7-47.0); Hemoglobin 9.6 GM/DL (12.0-16.0); Immature Granulocytes % 4.1 %; Immature Granulocytes Absolute 0.54 #; Lymphocytes # 2.4 10*3/uL (1.4-4.0); Lymphocytes % 18.2 % (21.3-54.2); Mean Corpuscular HGB Conc 30.6 GM/DL (32-36); Mean Corpuscular Volume 91.8 FL (87-102); Mean Platelet Volume 10.9 FL (9.6-12.0); NRBC # 0.04 10*3/uL; Neutrophils % 69.8 % (38.7-73.9); Platelet Count 300 T/CUMM (130-400); Red Blood Count 3.42 MC/CUMM (3.8-5.5); Red Cell Distribution Width 17.5 % (9.3-17.3); White Blood Count 13.3 T/CUMM (4-12)
[2020-09-01 05:32] LABS: Band Neutrophils 1 % (0-10); Eosinophils 1 % (0-10); Hypochromasia 1+; Lymphocytes 18 % (20-55); Microcytosis 1+; Platelet Estimate Adequate; Segmented Neutrophils 71 % (50-85); Total Cells Counted 100
[2020-09-01 05:49] LABS: Alanine Aminotransferase 49 U/L (13-56); Albumin 2.6 G/DL (3.4-5.0); Albumin 2.7 G/DL (3.4-5.0); Aspartate Amino Transferase 27 U/L (0-37); Bilirubin,Direct 0.15 MG/DL (0.0-0.20); Bilirubin,Indirect 0.2 MG/DL (0.0-1.0); Bilirubin,Total 0.4 MG/DL (0.20-1.00); Osmolality,Calculated 297.7 MOS/KG (273-304); Potassium 4.2 MMOL/L (3.5-5.1); Total Protein 6.3 G/DL (6.4-8.2)
[2020-09-01 05:50] LABS: Alkaline Phosphatase 56 U/L (45-117)
[2020-09-01] MEDS: INSULIN REGULAR 100 UNIT/ML SUBCUT SCH ×6 (06:34→22:32)
[2020-09-01] MEDS ORDERED: metFORMIN 500 MG TABLET PO SCH (08:00)
[2020-09-01] MEDS: ASPIRIN EC 325 MG TABLET PO SCH (09:38)
[2020-09-01] MEDS: FOLIC ACID 1 MG TABLET PO SCH (09:38)
[2020-09-01] MEDS: DOCUSATE SODIUM 100 MG CAPSULE PO SCH (09:39)
[2020-09-01] MEDS: METOPROLOL TARTRATE 25 MG TABLET PO SCH ×2 (09:39→22:13)
[2020-09-01] MEDS: hydroCHLOROthiazide 25 MG TABLET PO SCH (09:40)
[2020-09-01] MEDS: PANTOPRAZOLE 40 MG TABLET PO SCH (09:40)
[2020-09-01] MEDS: FERROUS SULFATE 325 MG TABLET PO SCH (09:40)
[2020-09-01] MEDS: CHLORHEXIDINE 0.12% ORAL RINSE 60 ML BOTTLE SWISH/SPIT SCH ×2 (09:40→22:32)
[2020-09-01] MEDS ORDERED: LACTULOSE 20 GM/30 ML UDCUP PO PRN (10:19)
[2020-09-01] MEDS: AMITRIPTYLINE 50 MG TABLET PO SCH (22:12)
[2020-09-01] MEDS: SIMVASTATIN 80 MG TABLET PO SCH (22:13)
[2020-09-02 04:35] LABS: Basophils # 0.1 10*3/uL (0.0-0.2); Basophils % 0.5 % (0.0-0.8); Eosinophils # 0.1 10*3/uL (0.0-0.87); Eosinophils % 1.3 % (0.00-10.9); Hematocrit 35.1 VOL% (35.7-47.0); Hemoglobin 10.9 GM/DL (12.0-16.0); Immature Granulocytes % 4.2 %; Lymphocytes # 2.2 10*3/uL (1.4-4.0); Lymphocytes % 22.5 % (21.3-54.2); Mean Corpuscular HGB Conc 31.1 GM/DL (32-36); Mean Corpuscular Volume 89.1 FL (87-102); Mean Platelet Volume 10.4 FL (9.6-12.0); Monocytes % 6.4 % (1.7-12.7); NRBC # 0.03 10*3/uL; Neutrophils % 65.1 % (38.7-73.9); Platelet Count 282 T/CUMM (130-400); Red Blood Count 3.94 MC/CUMM (3.8-5.5); Red Cell Distribution Width 16.9 % (9.3-17.3); White Blood Count 9.6 T/CUMM (4-12)
[2020-09-02 05:00] LABS: Calcium 9.1 MG/DL (8.5-10.1); Osmolality,Calculated 292.3 MOS/KG (273-304); Potassium 3.6 MMOL/L (3.5-5.1)
[2020-09-02] MEDS ORDERED: metFORMIN 500 MG TABLET PO SCH (08:00)
[2020-09-02] MEDS: METOPROLOL TARTRATE 25 MG TABLET PO SCH ×2 (10:00→21:06)
[2020-09-02] MEDS: ASPIRIN EC 325 MG TABLET PO SCH (10:00)
[2020-09-02] MEDS: DOCUSATE SODIUM 100 MG CAPSULE PO SCH (10:00)
[2020-09-02] MEDS: ASCORBIC ACID 500 MG TABLET PO SCH ×2 (10:00→21:07)
[2020-09-02] MEDS: PANTOPRAZOLE 40 MG TABLET PO SCH (10:00)
[2020-09-02] MEDS: FOLIC ACID 1 MG TABLET PO SCH (10:01)
[2020-09-02] MEDS: INSULIN REGULAR 100 UNIT/ML SUBCUT SCH ×4 (10:01→21:08)
[2020-09-02] MEDS: FERROUS SULFATE 325 MG TABLET PO SCH (10:01)
[2020-09-02] MEDS: CHLORHEXIDINE 0.12% ORAL RINSE 60 ML BOTTLE SWISH/SPIT SCH ×2 (10:02→21:10)
[2020-09-02] MEDS: hydroCHLOROthiazide 25 MG TABLET PO SCH (10:12)
[2020-09-02] MEDS: metFORMIN 500 MG TABLET PO SCH (10:12)
[2020-09-02] MEDS: POLYETHYLENE GLYCOL POWDER 17 GM PACK PO SCH (12:51)
[2020-09-02] MEDS: SIMVASTATIN 80 MG TABLET PO SCH (21:07)
[2020-09-02] MEDS: AMITRIPTYLINE 50 MG TABLET PO SCH (21:07)
[2020-09-02] MEDS: oxyCODONE/ACETAMINOPHEN 5-325 MG TABLET PO PRN (22:46)
[2020-09-03 05:41] LABS: Basophils # 0.1 10*3/uL (0.0-0.2); Basophils % 0.4 % (0.0-0.8); Eosinophils # 0.2 10*3/uL (0.0-0.87); Eosinophils % 1.2 % (0.00-10.9); Hematocrit 32.5 VOL% (35.7-47.0); Hemoglobin 9.9 GM/DL (12.0-16.0); Immature Granulocytes % 4.7 %; Immature Granulocytes Absolute 0.59 #; Lymphocytes % 16.1 % (21.3-54.2); Mean Corpuscular HGB Conc 30.5 GM/DL (32-36); Mean Corpuscular Volume 90.3 FL (87-102); Mean Platelet Volume 10.2 FL (9.6-12.0); Monocytes % 6.7 % (1.7-12.7); NRBC # 0.02 10*3/uL; Neutrophils % 70.9 % (38.7-73.9); Platelet Count 351 T/CUMM (130-400); Red Cell Distribution Width 17.1 % (9.3-17.3); White Blood Count 12.4 T/CUMM (4-12)
[2020-09-03 06:17] LABS: Alanine Aminotransferase 46 U/L (13-56); Albumin 2.6 G/DL (3.4-5.0); Alkaline Phosphatase 55 U/L (45-117); Aspartate Amino Transferase 22 U/L (0-37); Bilirubin,Indirect 0.3 MG/DL (0.0-1.0); Blood Urea Nitrogen 32 MG/DL (7-18); Calcium 9.1 MG/DL (8.5-10.1); Carbon Dioxide 32 MMOL/L (21-32); Estimated Glom Filtration Rate 85 ML/MIN; Glucose 193 MG/DL (74-106); Osmolality,Calculated 290.4 MOS/KG (273-304); Potassium 3.7 MMOL/L (3.5-5.1); Sodium 140 MMOL/L (136-145); Total Protein 6.4 G/DL (6.4-8.2)
[2020-09-03 06:52] LABS: Lymphocytes 9 % (20-55); Segmented Neutrophils 86 % (50-85); Total Cells Counted 100
[2020-09-03 06:53] LABS: Hypochromasia 1+
[2020-09-03 06:54] LABS: Platelet Estimate Normal; Polychromasia Slight
[2020-09-03] MEDS: INSULIN REGULAR 100 UNIT/ML SUBCUT SCH ×4 (09:38→21:22)
[2020-09-03] MEDS: METOPROLOL TARTRATE 25 MG TABLET PO SCH ×2 (09:39→21:22)
[2020-09-03] MEDS: ASCORBIC ACID 500 MG TABLET PO SCH ×2 (09:39→21:21)
[2020-09-03] MEDS: PANTOPRAZOLE 40 MG TABLET PO SCH (09:39)
[2020-09-03] MEDS: hydroCHLOROthiazide 25 MG TABLET PO SCH (09:39)
[2020-09-03] MEDS: FERROUS SULFATE 325 MG TABLET PO SCH (09:39)
[2020-09-03] MEDS: metFORMIN 500 MG TABLET PO SCH (09:39)
[2020-09-03] MEDS: DOCUSATE SODIUM 100 MG CAPSULE PO SCH (09:40)
[2020-09-03] MEDS: CHLORHEXIDINE 0.12% ORAL RINSE 60 ML BOTTLE SWISH/SPIT SCH ×2 (09:40→21:22)
[2020-09-03] MEDS: ASPIRIN EC 325 MG TABLET PO SCH (09:40)
[2020-09-03] MEDS: FOLIC ACID 1 MG TABLET PO SCH (09:40)
[2020-09-03] MEDS: POLYETHYLENE GLYCOL POWDER 17 GM PACK PO SCH (11:36)
[2020-09-03] MEDS: oxyCODONE/ACETAMINOPHEN 5-325 MG TABLET PO PRN ×2 (14:37→21:22)
[2020-09-03] MEDS: AMITRIPTYLINE 50 MG TABLET PO SCH (18:59)
[2020-09-03] MEDS: SIMVASTATIN 80 MG TABLET PO SCH (18:59)
[2020-09-04 06:21] LABS: Basophils # 0.1 10*3/uL (0.0-0.2); Basophils % 0.5 % (0.0-0.8); Eosinophils # 0.2 10*3/uL (0.0-0.87); Eosinophils % 1.4 % (0.00-10.9); Hematocrit 30.8 VOL% (35.7-47.0); Hemoglobin 9.8 GM/DL (12.0-16.0); Immature Granulocytes % 2.4 %; Immature Granulocytes Absolute 0.27 #; Lymphocytes # 1.9 10*3/uL (1.4-4.0); Lymphocytes % 17.1 % (21.3-54.2); Mean Corpuscular HGB Conc 31.8 GM/DL (32-36); Mean Corpuscular Volume 88.3 FL (87-102); Mean Platelet Volume 10.3 FL (9.6-12.0); Monocytes % 7.1 % (1.7-12.7); Neutrophils % 71.5 % (38.7-73.9); Platelet Count 381 T/CUMM (130-400); Red Blood Count 3.49 MC/CUMM (3.8-5.5)
[2020-09-04 07:03] LABS: Alanine Aminotransferase 43 U/L (13-56); Albumin 2.5 G/DL (3.4-5.0); Alkaline Phosphatase 55 U/L (45-117); Aspartate Amino Transferase 17 U/L (0-37); Bilirubin,Indirect 0.3 MG/DL (0.0-1.0); Blood Urea Nitrogen 29 MG/DL (7-18); Carbon Dioxide 28 MMOL/L (21-32); Estimated Glom Filtration Rate 85 ML/MIN; Glucose 193 MG/DL (74-106); Osmolality,Calculated 293.1 MOS/KG (273-304); Potassium 3.7 MMOL/L (3.5-5.1); Sodium 142 MMOL/L (136-145); Total Protein 6.4 G/DL (6.4-8.2)
[2020-09-04] MEDS: oxyCODONE/ACETAMINOPHEN 5-325 MG TABLET PO PRN ×2 (07:32→21:08)
[2020-09-04] MEDS: ASCORBIC ACID 500 MG TABLET PO SCH ×2 (09:37→21:08)
[2020-09-04] MEDS: metFORMIN 500 MG TABLET PO SCH ×3 (09:38→21:08)
[2020-09-04] MEDS: PANTOPRAZOLE 40 MG TABLET PO SCH (09:38)
[2020-09-04] MEDS: FOLIC ACID 1 MG TABLET PO SCH (09:38)
[2020-09-04] MEDS: hydroCHLOROthiazide 25 MG TABLET PO SCH (09:38)
[2020-09-04] MEDS: FERROUS SULFATE 325 MG TABLET PO SCH (09:39)
[2020-09-04] MEDS: DOCUSATE SODIUM 100 MG CAPSULE PO SCH (09:39)
[2020-09-04] MEDS: METOPROLOL TARTRATE 25 MG TABLET PO SCH ×2 (09:39→21:08)
[2020-09-04] MEDS: ASPIRIN EC 325 MG TABLET PO SCH (09:39)
[2020-09-04] MEDS: INSULIN REGULAR 100 UNIT/ML SUBCUT SCH ×4 (09:40→21:08)
[2020-09-04] MEDS: CHLORHEXIDINE 0.12% ORAL RINSE 60 ML BOTTLE SWISH/SPIT SCH ×2 (10:49→21:09)
[2020-09-04] MEDS: POLYETHYLENE GLYCOL POWDER 17 GM PACK PO SCH (10:49)
[2020-09-04] MEDS: SIMVASTATIN 80 MG TABLET PO SCH (18:10)
[2020-09-04] MEDS: AMITRIPTYLINE 50 MG TABLET PO SCH (18:10)
[2020-09-05 05:56] LABS: Calcium 9.1 MG/DL (8.5-10.1); Osmolality,Calculated 287.3 MOS/KG (273-304); Potassium 3.4 MMOL/L (3.5-5.1)
[2020-09-05] MEDS ORDERED: POTASSIUM CHLORIDE 20 MEQ TABLET PO ONE (09:00)
[2020-09-05] MEDS: POLYETHYLENE GLYCOL POWDER 17 GM PACK PO SCH (09:10)
[2020-09-05] MEDS: INSULIN GLARGINE 100 UNIT/ML SUBCUT SCH (09:12)
[2020-09-05] MEDS: hydroCHLOROthiazide 25 MG TABLET PO SCH (09:12)
[2020-09-05] MEDS: INSULIN REGULAR 100 UNIT/ML SUBCUT SCH ×4 (09:12→20:54)
[2020-09-05] MEDS: ASCORBIC ACID 500 MG TABLET PO SCH ×2 (09:13→20:54)
[2020-09-05] MEDS: FOLIC ACID 1 MG TABLET PO SCH (09:13)
[2020-09-05] MEDS: CHLORHEXIDINE 0.12% ORAL RINSE 60 ML BOTTLE SWISH/SPIT SCH ×2 (09:13→20:56)
[2020-09-05] MEDS: ASPIRIN EC 325 MG TABLET PO SCH (09:13)
[2020-09-05] MEDS: PANTOPRAZOLE 40 MG TABLET PO SCH (09:14)
[2020-09-05] MEDS: FERROUS SULFATE 325 MG TABLET PO SCH (09:14)
[2020-09-05] MEDS: DOCUSATE SODIUM 100 MG CAPSULE PO SCH (09:14)
[2020-09-05] MEDS: metFORMIN 500 MG TABLET PO SCH ×2 (09:14→20:53)
[2020-09-05] MEDS: METOPROLOL TARTRATE 25 MG TABLET PO SCH ×2 (09:14→20:53)
[2020-09-05] MEDS: SIMVASTATIN 80 MG TABLET PO SCH (20:54)
[2020-09-05] MEDS: AMITRIPTYLINE 50 MG TABLET PO SCH (20:54)
[2020-09-05] MEDS: ZALEPLON 5 MG CAPSULE PO PRN (22:36)
[2020-09-06 04:37] LABS: Basophils % 0.4 % (0.0-0.8); Eosinophils # 0.1 10*3/uL (0.0-0.87); Eosinophils % 1.4 % (0.00-10.9); Hematocrit 29.8 VOL% (35.7-47.0); Immature Granulocytes Absolute 0.18 #; Lymphocytes # 2.2 10*3/uL (1.4-4.0); Lymphocytes % 23.8 % (21.3-54.2); Mean Corpuscular HGB Conc 30.2 GM/DL (32-36); Mean Platelet Volume 10.5 FL (9.6-12.0); Monocytes % 8.9 % (1.7-12.7); Neutrophils % 63.5 % (38.7-73.9); Platelet Count 417 T/CUMM (130-400); Red Blood Count 3.31 MC/CUMM (3.8-5.5); White Blood Count 9.2 T/CUMM (4-12)
[2020-09-06 05:10] LABS: Calcium 9.2 MG/DL (8.5-10.1); Osmolality,Calculated 284.7 MOS/KG (273-304); Potassium 3.8 MMOL/L (3.5-5.1)
[2020-09-06] MEDS: FOLIC ACID 1 MG TABLET PO SCH (09:28)
[2020-09-06] MEDS: metFORMIN 500 MG TABLET PO SCH ×2 (09:28→21:44)
[2020-09-06] MEDS: ASPIRIN EC 325 MG TABLET PO SCH (09:28)
[2020-09-06] MEDS: ASCORBIC ACID 500 MG TABLET PO SCH ×2 (09:28→21:44)
[2020-09-06] MEDS: DOCUSATE SODIUM 100 MG CAPSULE PO SCH (09:28)
[2020-09-06] MEDS: METOPROLOL TARTRATE 25 MG TABLET PO SCH (09:29)
[2020-09-06] MEDS: PANTOPRAZOLE 40 MG TABLET PO SCH (09:29)
[2020-09-06] MEDS: hydroCHLOROthiazide 25 MG TABLET PO SCH (09:29)
[2020-09-06] MEDS: INSULIN REGULAR 100 UNIT/ML SUBCUT SCH ×4 (09:30→21:45)
[2020-09-06] MEDS: INSULIN GLARGINE 100 UNIT/ML SUBCUT SCH (09:30)
[2020-09-06] MEDS: POLYETHYLENE GLYCOL POWDER 17 GM PACK PO SCH (09:30)
[2020-09-06] MEDS: FERROUS SULFATE 325 MG TABLET PO SCH (09:30)
[2020-09-06] MEDS: CHLORHEXIDINE 0.12% ORAL RINSE 60 ML BOTTLE SWISH/SPIT SCH ×2 (09:31→21:45)
[2020-09-06] MEDS: SIMVASTATIN 80 MG TABLET PO SCH (21:44)
[2020-09-06] MEDS: AMITRIPTYLINE 50 MG TABLET PO SCH (21:44)
[2020-09-06] MEDS: ZALEPLON 5 MG CAPSULE PO PRN (21:44)
[2020-09-07 06:38] LABS: Calcium 9.1 MG/DL (8.5-10.1); Osmolality,Calculated 285.5 MOS/KG (273-304); Potassium 3.7 MMOL/L (3.5-5.1)
[2020-09-07] MEDS: METOPROLOL TARTRATE 25 MG TABLET PO SCH (09:09)
[2020-09-07] MEDS: ASPIRIN EC 325 MG TABLET PO SCH (09:09)
[2020-09-07] MEDS: hydroCHLOROthiazide 25 MG TABLET PO SCH (09:09)
[2020-09-07] MEDS: PANTOPRAZOLE 40 MG TABLET PO SCH (09:09)
[2020-09-07] MEDS: ASCORBIC ACID 500 MG TABLET PO SCH (09:09)
[2020-09-07] MEDS: DOCUSATE SODIUM 100 MG CAPSULE PO SCH (09:09)
[2020-09-07] MEDS: FERROUS SULFATE 325 MG TABLET PO SCH (09:10)
[2020-09-07] MEDS: FOLIC ACID 1 MG TABLET PO SCH (09:10)
[2020-09-07] MEDS: INSULIN REGULAR 100 UNIT/ML SUBCUT SCH (09:10)
[2020-09-07] MEDS: INSULIN GLARGINE 100 UNIT/ML SUBCUT SCH (09:10)
[2020-09-07] MEDS: metFORMIN 500 MG TABLET PO SCH (09:10)
[2020-09-07 11:53] VITALS: BP 123/62
[2020-09-07] MEDS: CHLORHEXIDINE 0.12% ORAL RINSE 60 ML BOTTLE SWISH/SPIT SCH (12:37)
[2020-09-07] MEDS: POLYETHYLENE GLYCOL POWDER 17 GM PACK PO SCH (12:37)
== END 2020-09-07 12:30 | disposition home health service (06) | DRG 236 ==
LOC: N.ICU 13:46 → N.TELEN 08-28 17:12 → N.CVR 08-29 10:48 → N.ICU 08-30 10:09 → N.TELES 08-31 17:53

== ENCOUNTER 2021-01-19 22:13 | Inpatient (IN) ==
[2021-01-19] MEDS ORDERED: SODIUM CHLORIDE 0.9% 1,000 ML IV STA ×2 (22:56→23:50)
[2021-01-19 23:14] LABS: Basophils # 0.1 10*3/uL (0.0-0.2); Basophils % 0.3 % (0.0-0.8); Eosinophils # 0.1 10*3/uL (0.0-0.87); Eosinophils % 0.4 % (0.00-10.9); Hematocrit 32.2 VOL% (35.7-47.0); Hemoglobin 9.7 GM/DL (12.0-16.0); Immature Granulocytes % 1.2 %; Immature Granulocytes Absolute 0.26 #; Lymphocytes # 2.4 10*3/uL (1.4-4.0); Lymphocytes % 11.3 % (21.3-54.2); Mean Corpuscular HGB Conc 30.1 GM/DL (32-36); Mean Corpuscular Volume 82.4 FL (87-102); Mean Platelet Volume 9.9 FL (9.6-12.0); Monocytes % 9.1 % (1.7-12.7); Neutrophils % 77.7 % (38.7-73.9); Platelet Count 400 T/CUMM (130-400); Red Blood Count 3.91 MC/CUMM (3.8-5.5); Red Cell Distribution Width 18.6 % (9.3-17.3); White Blood Count 21.1 T/CUMM (4-12)
[2021-01-19 23:25] LABS: INR 1.1; PT Patient Result 11.9 SECS (10.5-12.0)
[2021-01-19 23:35] LABS: Alanine Aminotransferase 10 U/L (13-56); Albumin 2.7 G/DL (3.4-5.0); Alkaline Phosphatase 75 U/L (45-117); Aspartate Amino Transferase 19 U/L (0-37); Blood Urea Nitrogen 51 MG/DL (7-18); Carbon Dioxide 22 MMOL/L (21-32); Estimated Glom Filtration Rate 19 ML/MIN; Glucose 94 MG/DL (74-106); Sodium 136 MMOL/L (136-145); Total Protein 6.7 G/DL (6.4-8.2)
[2021-01-19 23:41] LABS: Band Neutrophils 2 % (0-10); Lymphocytes 5 % (20-55); Segmented Neutrophils 88 % (50-85)
[2021-01-19 23:42] LABS: Hypochromasia Slight; Platelet Estimate Increased; Total Cells Counted 100
[2021-01-19] MEDS ORDERED: PIPERACILLIN/TAZOBACTAM 3,375 MG in SODIUM CHLORIDE 0.9% 100 ML IV STA (23:50)
[2021-01-20 00:32] LABS: Amorphous Crystals,Urine Occasional /HPF (Few); Bacteria,Urine Few /HPF (Few); Bilirubin,Urine Negative (Negative); Blood, Urine Small mg/dL (Negative); Glucose,Urine (UA) >=500 mg/dL (Negative); Ketones,Urine Negative (Negative); Nitrite,Urine Negative (Negative); Protein,Urine 100 MG/DL; Squamous Epithelial Cell,Urine Occasional /HPF (0-10); Urine Appearance CLOUDY (Clear); Urine Color Yellow (Yellow); Urine Specific Gravity 1.013 (1.001-1.035); Urine Urobilinogen < 2.0 EU/DL (0.2-1.0)
[2021-01-20] MEDS ORDERED: DEXTROSE 50% 25 GM/50 ML SYRINGE IV PRN ×2 (03:24→14:42)
[2021-01-20] MEDS ORDERED: GLUCAGON 1 MG VIAL IM PRN (03:24)
[2021-01-20] MEDS ORDERED: hydrALAZINE 20 MG/1 ML VIAL IV PRN (03:25)
[2021-01-20] MEDS ORDERED: guaiFENesin/DM ER 600-30 MG TABLET PO PRN (03:25)
[2021-01-20] MEDS ORDERED: ONDANSETRON 4 MG/2 ML VIAL IV PRN (03:25)
[2021-01-20] MEDS ORDERED: SIMETHICONE CHEW 125 MG TABLET PO PRN (03:25)
[2021-01-20] MEDS ORDERED: ACETAMINOPHEN 325 MG TABLET PO PRN (03:25)
[2021-01-20] MEDS ORDERED: POTASSIUM CHLORIDE RIDER 10 MEQ/100 ML PREMIX IV PRN (03:34)
[2021-01-20] MEDS ORDERED: MAGNESIUM SULF RIDER 2 GM/50 ML PREMIX IV PRN (03:34)
[2021-01-20] MEDS ORDERED: MAGNESIUM SULF RIDER 4 GM/100 ML PREMIX IV PRN (03:34)
[2021-01-20] MEDS: SODIUM CHLORIDE 0.9% 1,000 ML IV SCH ×2 (04:18→22:27)
[2021-01-20] MEDS: AZITHROMYCIN INJ 500 MG in SODIUM CHLORIDE 0.9% 250 ML IV SCH (04:18)
[2021-01-20 04:38] LABS: Basophils % 0.2 % (0.0-0.8); Eosinophils # 0.1 10*3/uL (0.0-0.87); Eosinophils % 0.5 % (0.00-10.9); Hemoglobin 9.6 GM/DL (12.0-16.0); Immature Granulocytes % 1.5 %; Immature Granulocytes Absolute 0.26 #; Lymphocytes % 11.5 % (21.3-54.2); Mean Corpuscular Volume 83.3 FL (87-102); Mean Platelet Volume 9.2 FL (9.6-12.0); Monocytes % 7.5 % (1.7-12.7); Neutrophils % 78.8 % (38.7-73.9); Platelet Count 375 T/CUMM (130-400); Red Blood Count 3.84 MC/CUMM (3.8-5.5); Red Cell Distribution Width 18.6 % (9.3-17.3); White Blood Count 17.5 T/CUMM (4-12)
[2021-01-20 04:57] LABS: Band Neutrophils 1 % (0-10); Hypochromasia 1+; Lymphocytes 8 % (20-55); Microcytosis 1+; Platelet Estimate Adequate; Segmented Neutrophils 84 % (50-85); Total Cells Counted 100
[2021-01-20 05:05] LABS: Calcium 8.1 MG/DL (8.5-10.1); Osmolality,Calculated 284.8 MOS/KG (273-304); Potassium 3.5 MMOL/L (3.5-5.1); Risk Ratio 3.74; Thyroid Stimulating Hormone 0.73 uIU/ml (0.358-3.74); VLDL Cholesterol 39.6 MG/DL
[2021-01-20] MEDS: ALBUTEROL 2.5 MG/3 ML NEB RESP TX SCH ×3 (07:30→19:51)
[2021-01-20] MEDS: PANTOPRAZOLE 40 MG TABLET PO SCH (08:37)
[2021-01-20] MEDS: INSULIN REGULAR 100 UNIT/ML SUBCUT SCH ×4 (08:37→20:42)
[2021-01-20] MEDS: DOCUSATE SODIUM 100 MG CAPSULE PO SCH ×2 (08:37→20:42)
[2021-01-20] MEDS: POTASSIUM CHLORIDE 20 MEQ TABLET PO PRN (08:38)
[2021-01-20] MEDS ORDERED: cefTRIAXone 1,000 MG in SODIUM CHLORIDE 0.9% 100 ML IV SCH (09:00)
[2021-01-20] MEDS ORDERED: POTASSIUM CHLORIDE 20 MEQ TABLET PO ONE (13:22)
[2021-01-20 15:01] LABS: Amorphous Crystals,Urine Moderate /HPF (Few); Bacteria,Urine Moderate /HPF (Few); Bilirubin,Urine Negative (Negative); Blood, Urine Small mg/dL (Negative); Glucose,Urine (UA) >=500 mg/dL (Negative); Ketones,Urine Negative (Negative); Nitrite,Urine Negative (Negative); Protein,Urine 100 MG/DL; Squamous Epithelial Cell,Urine Occasional /HPF (0-10); Urine Appearance CLOUDY (Clear); Urine Color Amber (Yellow); Urine Specific Gravity 1.012 (1.001-1.035); Urine Urobilinogen < 2.0 EU/DL (0.2-1.0)
[2021-01-20] MEDS: cilostazoL 100 MG TABLET PO SCH (20:41)
[2021-01-20] MEDS: OMEGA 3 ACID ETHYL ESTERS 1 GM CAPSULE PO SCH (20:41)
[2021-01-21] MEDS: ALBUTEROL 2.5 MG/3 ML NEB RESP TX SCH ×4 (01:13→19:32)
[2021-01-21] MEDS: AZITHROMYCIN INJ 500 MG in SODIUM CHLORIDE 0.9% 250 ML IV SCH (03:48)
[2021-01-21 05:21] LABS: Basophils % 0.2 % (0.0-0.8); Eosinophils # 0.1 10*3/uL (0.0-0.87); Eosinophils % 0.8 % (0.00-10.9); Hemoglobin 8.5 GM/DL (12.0-16.0); Immature Granulocytes % 1.7 %; Immature Granulocytes Absolute 0.26 #; Lymphocytes # 1.9 10*3/uL (1.4-4.0); Lymphocytes % 12.2 % (21.3-54.2); Mean Corpuscular HGB Conc 29.3 GM/DL (32-36); Mean Corpuscular Volume 83.3 FL (87-102); Mean Platelet Volume 9.7 FL (9.6-12.0); Monocytes % 8.3 % (1.7-12.7); Neutrophils % 76.8 % (38.7-73.9); Platelet Count 347 T/CUMM (130-400); Red Blood Count 3.48 MC/CUMM (3.8-5.5); Red Cell Distribution Width 19.1 % (9.3-17.3); White Blood Count 15.7 T/CUMM (4-12)
[2021-01-21 05:26] LABS: Protein/Creatinine Ratio,Urine 3.7 RATIO
[2021-01-21 05:37] LABS: Calcium 7.5 MG/DL (8.5-10.1); Osmolality,Calculated 300.3 MOS/KG (273-304); Potassium 4.3 MMOL/L (3.5-5.1)
[2021-01-21 05:50] LABS: Uric Acid 7.4 MG/DL (2.6-6.0)
[2021-01-21 06:10] LABS: Eosinophils 1 % (0-10); Lymphocytes 15 % (20-55); Segmented Neutrophils 78 % (50-85); Total Cells Counted 100
[2021-01-21 06:11] LABS: Hypochromasia Slight; Microcytosis 1+; Platelet Estimate Increased
[2021-01-21 06:12] LABS: Anisocytosis 1+; Polychromasia Slight
[2021-01-21] MEDS: SODIUM CHLORIDE 0.9% 1,000 ML IV SCH ×2 (06:46→21:07)
[2021-01-21] MEDS: INSULIN REGULAR 100 UNIT/ML SUBCUT SCH ×4 (09:53→20:59)
[2021-01-21] MEDS: MAGNESIUM OXIDE 400 MG TABLET PO SCH (09:54)
[2021-01-21] MEDS: cilostazoL 100 MG TABLET PO SCH ×2 (09:54→20:58)
[2021-01-21] MEDS: CLOPIDOGREL 75 MG TABLET PO SCH (09:55)
[2021-01-21] MEDS: PANTOPRAZOLE 40 MG TABLET PO SCH (09:55)
[2021-01-21] MEDS: DOCUSATE SODIUM 100 MG CAPSULE PO SCH ×2 (09:55→20:58)
[2021-01-21] MEDS: OMEGA 3 ACID ETHYL ESTERS 1 GM CAPSULE PO SCH ×2 (09:55→20:58)
[2021-01-21] MEDS: ROSUVASTATIN 20 MG TABLET PO SCH (09:55)
[2021-01-21] MEDS: METOPROLOL TARTRATE 25 MG TABLET PO SCH (09:55)
[2021-01-21] MEDS: ASPIRIN EC 81 MG TABLET PO SCH (09:55)
[2021-01-21] MEDS: cefTRIAXone 2,000 MG in SODIUM CHLORIDE 0.9% 100 ML IV SCH (10:01)
[2021-01-22] MEDS: ALBUTEROL 2.5 MG/3 ML NEB RESP TX SCH ×4 (00:03→21:00)
[2021-01-22] MEDS: ROSUVASTATIN 20 MG TABLET PO SCH (08:41)
[2021-01-22] MEDS: PANTOPRAZOLE 40 MG TABLET PO SCH (08:42)
[2021-01-22] MEDS: CLOPIDOGREL 75 MG TABLET PO SCH (08:42)
[2021-01-22] MEDS: cilostazoL 100 MG TABLET PO SCH ×2 (08:42→21:31)
[2021-01-22] MEDS: OMEGA 3 ACID ETHYL ESTERS 1 GM CAPSULE PO SCH ×2 (08:42→21:31)
[2021-01-22] MEDS: ASPIRIN EC 81 MG TABLET PO SCH (08:42)
[2021-01-22] MEDS: METOPROLOL TARTRATE 25 MG TABLET PO SCH (08:42)
[2021-01-22] MEDS: DOCUSATE SODIUM 100 MG CAPSULE PO SCH ×2 (08:42→21:31)
[2021-01-22] MEDS: MAGNESIUM OXIDE 400 MG TABLET PO SCH (08:42)
[2021-01-22] MEDS: cefTRIAXone 2,000 MG in SODIUM CHLORIDE 0.9% 100 ML IV SCH (08:45)
[2021-01-22] MEDS: INSULIN REGULAR 100 UNIT/ML SUBCUT SCH ×4 (08:48→21:32)
[2021-01-22] MEDS: SODIUM CHLORIDE 0.9% 1,000 ML IV SCH (12:39)
[2021-01-22 13:27] LABS: Basophils % 0.4 % (0.0-0.8); Eosinophils # 0.2 10*3/uL (0.0-0.87); Eosinophils % 2.1 % (0.00-10.9); Hematocrit 27.6 VOL% (35.7-47.0); Hemoglobin 8.2 GM/DL (12.0-16.0); Immature Granulocytes % 2.9 %; Lymphocytes # 1.4 10*3/uL (1.4-4.0); Lymphocytes % 13.7 % (21.3-54.2); Mean Corpuscular HGB Conc 29.7 GM/DL (32-36); Mean Corpuscular Volume 81.9 FL (87-102); Mean Platelet Volume 9.9 FL (9.6-12.0); Monocytes % 8.2 % (1.7-12.7); Neutrophils % 72.7 % (38.7-73.9); Platelet Count 376 T/CUMM (130-400); Red Blood Count 3.37 MC/CUMM (3.8-5.5); Red Cell Distribution Width 19.6 % (9.3-17.3); White Blood Count 10.3 T/CUMM (4-12)
[2021-01-22 14:10] LABS: Calcium 7.8 MG/DL (8.5-10.1); Osmolality,Calculated 303.1 MOS/KG (273-304); Potassium 3.9 MMOL/L (3.5-5.1)
[2021-01-22] MEDS: INSULIN GLARGINE 100 UNIT/ML SUBCUT SCH (21:32)
[2021-01-23] MEDS: ALBUTEROL 2.5 MG/3 ML NEB RESP TX SCH ×4 (00:36→20:09)
[2021-01-23 06:07] LABS: Basophils % 0.3 % (0.0-0.8); Eosinophils # 0.3 10*3/uL (0.0-0.87); Eosinophils % 3.8 % (0.00-10.9); Hematocrit 27.7 VOL% (35.7-47.0); Hemoglobin 8.3 GM/DL (12.0-16.0); Immature Granulocytes % 5.5 %; Immature Granulocytes Absolute 0.49 #; Lymphocytes # 1.3 10*3/uL (1.4-4.0); Lymphocytes % 14.3 % (21.3-54.2); Mean Corpuscular Volume 82.4 FL (87-102); Mean Platelet Volume 9.3 FL (9.6-12.0); Monocytes % 8.9 % (1.7-12.7); Neutrophils % 67.2 % (38.7-73.9); Platelet Count 356 T/CUMM (130-400); Red Blood Count 3.36 MC/CUMM (3.8-5.5); Red Cell Distribution Width 19.5 % (9.3-17.3); White Blood Count 8.8 T/CUMM (4-12)
[2021-01-23 06:30] LABS: Eosinophils 3 % (0-10); Hypochromasia 1+; Lymphocytes 11 % (20-55); Microcytosis 1+; Platelet Estimate Adequate; Segmented Neutrophils 80 % (50-85); Total Cells Counted 100
[2021-01-23 06:37] LABS: Osmolality,Calculated 304.7 MOS/KG (273-304); Potassium 3.7 MMOL/L (3.5-5.1)
[2021-01-23 06:44] LABS: % Iron Saturation 17.4 % (18-50); Ferritin 306.9 ng/mL (8-252)
[2021-01-23] MEDS: ASPIRIN EC 81 MG TABLET PO SCH (09:18)
[2021-01-23] MEDS: METOPROLOL TARTRATE 25 MG TABLET PO SCH (09:18)
[2021-01-23] MEDS: INSULIN REGULAR 100 UNIT/ML SUBCUT SCH ×4 (09:18→23:56)
[2021-01-23] MEDS: DOCUSATE SODIUM 100 MG CAPSULE PO SCH ×2 (09:19→21:22)
[2021-01-23] MEDS: cilostazoL 100 MG TABLET PO SCH ×2 (09:19→21:23)
[2021-01-23] MEDS: ROSUVASTATIN 20 MG TABLET PO SCH (09:19)
[2021-01-23] MEDS: MAGNESIUM OXIDE 400 MG TABLET PO SCH (09:19)
[2021-01-23] MEDS: CLOPIDOGREL 75 MG TABLET PO SCH (09:19)
[2021-01-23] MEDS: OMEGA 3 ACID ETHYL ESTERS 1 GM CAPSULE PO SCH ×2 (09:19→21:23)
[2021-01-23] MEDS: cefTRIAXone 2,000 MG in SODIUM CHLORIDE 0.9% 100 ML IV SCH (09:19)
[2021-01-23] MEDS: POTASSIUM CHLORIDE 20 MEQ TABLET PO PRN (12:50)
[2021-01-23] MEDS: INSULIN GLARGINE 100 UNIT/ML SUBCUT SCH (21:23)
[2021-01-23] MEDS: MELATONIN 3 MG TABLET PO PRN (23:04)
[2021-01-24] MEDS: ALBUTEROL 2.5 MG/3 ML NEB RESP TX SCH ×4 (01:00→19:40)
[2021-01-24 05:52] LABS: Basophils % 0.4 % (0.0-0.8); Eosinophils # 0.3 10*3/uL (0.0-0.87); Eosinophils % 3.6 % (0.00-10.9); Hemoglobin 7.8 GM/DL (12.0-16.0); Immature Granulocytes % 7.1 %; Immature Granulocytes Absolute 0.55 #; Lymphocytes # 1.2 10*3/uL (1.4-4.0); Lymphocytes % 15.9 % (21.3-54.2); Mean Corpuscular Volume 81.5 FL (87-102); Mean Platelet Volume 9.7 FL (9.6-12.0); Monocytes % 10.6 % (1.7-12.7); Neutrophils % 62.4 % (38.7-73.9); Platelet Count 365 T/CUMM (130-400); Red Blood Count 3.19 MC/CUMM (3.8-5.5); Red Cell Distribution Width 19.3 % (9.3-17.3); White Blood Count 7.8 T/CUMM (4-12)
[2021-01-24 06:17] LABS: Eosinophils 3 % (0-10); Hypochromasia 1+; Lymphocytes 18 % (20-55); Microcytosis 1+; Platelet Estimate Adequate; Segmented Neutrophils 65 % (50-85); Total Cells Counted 100
[2021-01-24 06:20] LABS: Calcium 8.7 MG/DL (8.5-10.1); Potassium 3.6 MMOL/L (3.5-5.1)
[2021-01-24] MEDS: INSULIN REGULAR 100 UNIT/ML SUBCUT SCH ×4 (08:02→20:52)
[2021-01-24] MEDS: ASPIRIN EC 81 MG TABLET PO SCH (09:12)
[2021-01-24] MEDS: cilostazoL 100 MG TABLET PO SCH ×2 (09:12→20:52)
[2021-01-24] MEDS: MAGNESIUM OXIDE 400 MG TABLET PO SCH (09:12)
[2021-01-24] MEDS: OMEGA 3 ACID ETHYL ESTERS 1 GM CAPSULE PO SCH ×2 (09:12→20:52)
[2021-01-24] MEDS: METOPROLOL TARTRATE 25 MG TABLET PO SCH (09:12)
[2021-01-24] MEDS: ROSUVASTATIN 20 MG TABLET PO SCH (09:12)
[2021-01-24] MEDS: DOCUSATE SODIUM 100 MG CAPSULE PO SCH ×2 (09:12→20:52)
[2021-01-24] MEDS: POTASSIUM CHLORIDE 20 MEQ TABLET PO PRN (09:13)
[2021-01-24] MEDS: cefTRIAXone 2,000 MG in SODIUM CHLORIDE 0.9% 100 ML IV SCH (09:15)
[2021-01-24] MEDS: CLOPIDOGREL 75 MG TABLET PO SCH (18:20)
[2021-01-24] MEDS: INSULIN GLARGINE 100 UNIT/ML SUBCUT SCH (20:52)
[2021-01-24] MEDS: MELATONIN 3 MG TABLET PO PRN (21:00)
[2021-01-25] MEDS: ALBUTEROL 2.5 MG/3 ML NEB RESP TX SCH ×4 (00:40→19:15)
[2021-01-25 06:27] LABS: Calcium 9.1 MG/DL (8.5-10.1); Potassium 3.8 MMOL/L (3.5-5.1)
[2021-01-25] MEDS: ASPIRIN EC 81 MG TABLET PO SCH (09:28)
[2021-01-25] MEDS: ROSUVASTATIN 20 MG TABLET PO SCH (09:28)
[2021-01-25] MEDS: CLOPIDOGREL 75 MG TABLET PO SCH (09:28)
[2021-01-25] MEDS: cilostazoL 100 MG TABLET PO SCH (09:28)
[2021-01-25] MEDS: MAGNESIUM OXIDE 400 MG TABLET PO SCH (09:28)
[2021-01-25] MEDS: DOCUSATE SODIUM 100 MG CAPSULE PO SCH ×2 (09:29→21:06)
[2021-01-25] MEDS: METOPROLOL TARTRATE 25 MG TABLET PO SCH (09:29)
[2021-01-25] MEDS: OMEGA 3 ACID ETHYL ESTERS 1 GM CAPSULE PO SCH ×2 (09:29→21:07)
[2021-01-25] MEDS: cefTRIAXone 2,000 MG in SODIUM CHLORIDE 0.9% 100 ML IV SCH (09:30)
[2021-01-25] MEDS: INSULIN REGULAR 100 UNIT/ML SUBCUT SCH ×4 (10:25→21:10)
[2021-01-25] MEDS: MELATONIN 3 MG TABLET PO PRN (21:07)
[2021-01-25] MEDS: INSULIN GLARGINE 100 UNIT/ML SUBCUT SCH (21:11)
[2021-01-26] MEDS: ALBUTEROL 2.5 MG/3 ML NEB RESP TX SCH ×2 (02:00→06:58)
[2021-01-26 07:29] LABS: Calcium 9.6 MG/DL (8.5-10.1); Osmolality,Calculated 303.6 MOS/KG (273-304); Potassium 3.9 MMOL/L (3.5-5.1)
[2021-01-26] MEDS: INSULIN REGULAR 100 UNIT/ML SUBCUT SCH ×2 (07:54→11:52)
[2021-01-26 08:23] VITALS: BP 149/57
[2021-01-26] MEDS: OMEGA 3 ACID ETHYL ESTERS 1 GM CAPSULE PO SCH (08:59)
[2021-01-26] MEDS: ROSUVASTATIN 20 MG TABLET PO SCH (08:59)
[2021-01-26] MEDS: MAGNESIUM OXIDE 400 MG TABLET PO SCH (09:01)
[2021-01-26] MEDS: ASPIRIN EC 81 MG TABLET PO SCH (09:01)
[2021-01-26] MEDS: DOCUSATE SODIUM 100 MG CAPSULE PO SCH (09:01)
[2021-01-26] MEDS: cefTRIAXone 2,000 MG in SODIUM CHLORIDE 0.9% 100 ML IV SCH (09:01)
[2021-01-26] MEDS: METOPROLOL TARTRATE 25 MG TABLET PO SCH (09:01)
== END 2021-01-26 12:39 | disposition home health service (06) | DRG 871 ==
LOC: N.ED 22:13 → SUATTDRO 01-20 03:24 → N.EDINP 01-20 03:24 → N.TELES 01-20 04:13
PROVIDERS: ADMIT Emergency Medicine; ATTEND Internal Medicine